=== PATIENT | female | born 1990 | race African-American/Black ===

== ENCOUNTER 2016-12-24 07:57 | Emergency (ER) | payer MEDICAID ==
[~2016-12-24] VITALS: Ht 170.2 cm; Wt 79.8 kg
[~2016-12-24 07:57] MED LIST: MEDR150I
[2016-12-24 08:41] VITALS: BP 107/71
[2016-12-24] MEDS ORDERED: ACETAMINOPHEN 325 MG TAB PO ONE (08:45)
== END 2016-12-24 09:43 | disposition home or self-care (01) ==
LOC: ER 07:57 → EDBD 07:57 → ER 09:43
DX: O26.893 Other specified pregnancy related conditions, third trimester (principal); S60.211A Contusion of right wrist, initial encounter; Z3A.34 34 weeks gestation of pregnancy; V49.9XXA Car occupant (driver) (passenger) injured in unspecified traffic accident, initial encounter; Y93.89 Activity, other specified; Y99.8 Other external cause status; Y92.89 Other specified places as the place of occurrence of the external cause
CPT/HCPCS: 73110